=== PATIENT | male | born 1975 | race Caucasian/White ===

== ENCOUNTER 2019-01-12 19:36 | Emergency (ER) | payer OTHER ==
[~2019-01-12] VITALS: Ht 177.8 cm; Wt 102.1 kg
[2019-01-12 20:01] VITALS: BP 167/83
== END 2019-01-12 21:16 | disposition home or self-care (01) ==
LOC: ER 19:45
DX: S62.511A Displaced fracture of proximal phalanx of right thumb, initial encounter for closed fracture (principal); V49.49XA Driver injured in collision with other motor vehicles in traffic accident, initial encounter; Y93.89 Activity, other specified; Y92.488 Other paved roadways as the place of occurrence of the external cause; Y99.8 Other external cause status
CPT/HCPCS: 73140-TC